=== PATIENT | female | born 1980 | race Two or more races ===

== ENCOUNTER 2018-01-03 05:38 | Inpatient (IN) | payer SELFPAY ==
[2018-01-03] MEDS: IV RINGERS,LACTATED 1000ML 1,000 ML IV ×4 (06:12→21:59)
[2018-01-03 06:22] LABS: HEMOGLOBIN 10.8 g/dL (12.0-15.5); MEAN CORPUSCULAR HEMOGLOBIN 26 pg (25-35); MEAN CORPUSCULAR HGB CONC 34 g/dL (31-37); MEAN CORPUSCULAR VOLUME 77 fL (79-100); PLATELET COUNT 353 x10^3/uL (140-400); RED BLOOD COUNT 4.13 x10^6/uL (3.50-5.40); RED CELL DISTRIBUTION WIDTH 14.6 % (11.5-14.5); WHITE BLOOD COUNT 9.7 x10^3/uL (4.0-11.0)
[2018-01-03] MEDS ORDERED: FAMOTIDINE 20 MG/2 ML VIAL (07:28)
[2018-01-03] MEDS ORDERED: METOCLOPRAMIDE HCL 10 MG/2 ML VIAL. (07:28)
[2018-01-03] MEDS ORDERED: ONDANSETRON PF 4 MG/2 ML VIAL. (07:28)
[2018-01-03] MEDS ORDERED: OXYTOCIN 10 UNIT/ML VIAL. ×2 (07:28→08:35)
[2018-01-03] MEDS ORDERED: fentaNYL PF VIAL 100 MCG/2 ML VIAL (07:28)
[2018-01-03] MEDS ORDERED: MORPHINE PF 5 MG/10 ML VIAL. (07:28)
[2018-01-03] MEDS: CITRIC ACID/SODIUM CITRATE 30 ML SOLUTION. PO (07:35)
[2018-01-03] MEDS ORDERED: MAG HYDROX/ALUMINUM HYD/SIMETH 30 ML ORAL.SUSP PO (08:00)
[2018-01-03] MEDS ORDERED: MMR per PROTOCOL. MC (08:00)
[2018-01-03] MEDS ORDERED: diphenhydrAMINE ORAL ELIXIR 12.5 MG/5 ML ML PO (08:00)
[2018-01-03] MEDS ORDERED: ONDANSETRON PF 4 MG/2 ML VIAL. IV (08:00)
[2018-01-03] MEDS ORDERED: OXYTOCIN 30 UNIT/500 ML PREMIX 500 ML IV (08:00)
[2018-01-03] MEDS ORDERED: ZOLPIDEM 5 MG TABLET. PO (08:00)
[2018-01-03] MEDS ORDERED: 0.9 % SODIUM CHLORIDE 10 ML DISP.SYRIN. IV (08:00)
[2018-01-03] MEDS ORDERED: SIMETHICONE 80 MG TAB.CHEW PO (08:00)
[2018-01-03] MEDS: KETOROLAC 30 MG/ML INJ. IV (10:50)
[2018-01-03] MEDS ORDERED: ceFAZolin 2GM PREMIX 2 GM/50 ML BAG IV (12:00)
[2018-01-03] MEDS: IBUPROFEN 800 MG TABLET. PO (14:00)
[2018-01-03] MEDS ORDERED: ceFAZolin SODIUM 1 GM in IV DEXTROSE 5% 50 ML IV (14:00)
[2018-01-03] MEDS: FERROUS SULFATE 325 MG TABLET. PO (17:00)
[2018-01-03] MEDS: ceFAZolin SODIUM IV Push 1 GM VIAL. IVP ×2 (18:25→22:50)
[2018-01-04 04:40] LABS: ADD MAN DIFF? NO
[2018-01-04 04:41] LABS: BASO # 0.1 x10^3/uL (0.0-0.2); BASO % 1 % (0-3); EOS # 0.1 x10^3/uL (0.0-0.7); EOS % 1 % (0-3); HEMATOCRIT 28.7 % (36.0-47.0); HEMOGLOBIN 9.4 g/dL (12.0-15.5); LYMPH # 1.1 x10^3/uL (1.0-4.8); LYMPH % 8 % (24-48); MEAN CORPUSCULAR HEMOGLOBIN 26 pg (25-35); MEAN CORPUSCULAR HGB CONC 33 g/dL (31-37); MEAN CORPUSCULAR VOLUME 78 fL (79-100); MONO # 1.4 x10^3/uL (0.0-1.1); MONO % 11 % (0-9); NEUT # 10.4 x10^3uL (1.8-7.7); NEUT % 80 % (31-73); PLATELET COUNT 303 x10^3/uL (140-400); RED BLOOD COUNT 3.68 x10^6/uL (3.50-5.40)
[2018-01-04] MEDS: KETOROLAC 30 MG/ML INJ. IV (05:23)
[2018-01-04] MEDS: ceFAZolin SODIUM IV Push 1 GM VIAL. IVP (06:22)
[2018-01-04] MEDS: oxyCODONE/APAP 5/325 1 TAB TABLET PO ×3 (08:12→22:47)
[2018-01-04] MEDS: FERROUS SULFATE 325 MG TABLET. PO ×2 (08:12→17:00)
[2018-01-04] MEDS: DOCUSATE SODIUM 100 MG CAPSULE. PO (08:12)
[2018-01-04] MEDS: diphenhydrAMINE HCL 25 MG CAPSULE PO (14:12)
[2018-01-04] MEDS: IBUPROFEN 800 MG TABLET. PO ×2 (14:12→22:47)
[2018-01-04] MEDS ORDERED: diphenhydrAMINE HCL 25 MG CAPSULE PO (14:15)
[2018-01-05] MEDS: MAGNESIUM HYDROXIDE 2,400 MG/30 ML ORAL.SUSP. PO (07:49)
[2018-01-05] MEDS: FERROUS SULFATE 325 MG TABLET. PO (07:49)
[2018-01-05] MEDS: IBUPROFEN 800 MG TABLET. PO (07:49)
[2018-01-05] MEDS: oxyCODONE/APAP 5/325 1 TAB TABLET PO (07:50)
== END 2018-01-05 11:29 | disposition home or self-care (01) | DRG 766 ==
LOC: 3 SO LND 05:38 → 3 NORTH 12:30
PROVIDERS: Specialist
PROC: 10D00Z1 Extraction of Products of Conception, Low, Open Approach (ICD-10-PCS; principal; 2018-01-03)
DX: O34.211 Maternal care for low transverse scar from previous cesarean delivery (principal); Z37.0 Single live birth; Z3A.38 38 weeks gestation of pregnancy
CPT/HCPCS: 36415; 85025; 85027; 86592; 86850; 86900; 86901; J0690; J1885; J2270; J2405; J2590; J2765; J3010; J7120; Q0163; S0028